=== PATIENT | female | born 1995 | race African-American/Black ===

== ENCOUNTER 2019-04-25 12:48 | Emergency (ER) | payer MEDICAID, OTHER ==
[~2019-04-25] VITALS: Ht 165.1 cm; Wt 91.0 kg
[2019-04-25] MEDS ORDERED: IBUP-516 PO (13:04)
[2019-04-25] MEDS ORDERED: TOPUD PO (13:04)
[2019-04-25 15:16] VITALS: BP 129/79
== END 2019-04-25 18:07 | disposition left against medical advice (07) ==
LOC: ER 12:48
DX: R50.9 Fever, unspecified (principal); R19.7 Diarrhea, unspecified; R11.10 Vomiting, unspecified; R51 Headache; Z53.21 Procedure and treatment not carried out due to patient leaving prior to being seen by health care provider

== ENCOUNTER 2021-09-18 06:40 | Emergency (ER) | payer MEDICAID ==
[~2021-09-18] VITALS: Ht 165.1 cm; Wt 89.0 kg
[~2021-09-18 06:40] MED LIST: IBUP-2778 PO; TOPUD PO
[2021-09-18] MEDS ORDERED: KETOROLAC 30MG/ML VIAL IV STA (07:45)
[2021-09-18] MEDS ORDERED: METHYLPREDNISOLONE SOD SUCC 125 MG/2 ML VIAL IV ONE (07:45)
[2021-09-18] MEDS ORDERED: PIPERACILLIN/TAZ 3.375G PREMIX 50 ML IV ONE (07:45)
[2021-09-18] MEDS ORDERED: SODIUM CHLORIDE 0.9% 1,000 ML IV ONE (07:45)
[2021-09-18] MEDS ORDERED: ACETAMINOPHEN 325MG TABLET PO STA (07:45)
[2021-09-18 08:25] LABS: HEMATOCRIT. 37.4 % (36.0-48.0); HEMOGLOBIN. 12.2 g/dL (12.0-16.0); MEAN CORPUSCULAR HEMOGLOBIN 27.7 pg (28.0-32.0); MEAN CORPUSCULAR VOLUME 84.8 fL (81.0-99.0); MEAN PLATELET VOLUME 8.8 fl (7.4-10.4); PLATELET 257 x1000/uL (130-400); RED BLOOD CELL COUNT 4.41 mill/uL (4.2-5.4); RED CELL DISTRIBUTION WIDTH 14.2 % (11.6-14.6)
[2021-09-18 08:32] LABS: CHLORIDE 106 mEq/L (98-107); HCG SCREEN NEGATIVE
[2021-09-18 08:33] LABS: PROTHROMBIN TIME 10.9 sec (9.6-11.0)
[2021-09-18 08:34] LABS: CLARITY URINE CLEAR (CLEAR); COLOR URINE YELLOW (YELLOW); KETONES URINE TRACE (NEGATIVE); LEUKOCYTE ESTERASE URINE NEGATIVE (NEGATIVE); NITRITE URINE POSITIVE (NEGATIVE); OCCULT BLOOD URINE NEGATIVE (NEGATIVE); PH URINE 6.5 (4.5-8.0); PROTEIN URINE NEGATIVE (NEGATIVE); SPECIFIC GRAVITY URINE 1.022 (1.005-1.030)
[2021-09-18 09:33] LABS: PLATELET ESTIMATE NORMAL
[2021-09-18] MEDS ORDERED: IOHEXOL-300 100 ML BOTTLE ONE (09:33)
[2021-09-18] MEDS ORDERED: IBUP-2028 MT (10:16)
[2021-09-18] MEDS ORDERED: AMOX1TAB16 MT (10:16)
[2021-09-18 10:28] VITALS: BP 122/74
== END 2021-09-18 10:30 | disposition home or self-care (01) ==
LOC: ER 06:40 → ENRESERV 14:26 → CANBEDREQ 21:00
DX: J03.90 Acute tonsillitis, unspecified (principal); J45.909 Unspecified asthma, uncomplicated; F17.210 Nicotine dependence, cigarettes, uncomplicated
CPT/HCPCS: 36415; 70491; 71045; 80053; 81003; 83605; 84145; 84703; 85025; 85610; 87040; 87070; 87086; 87426; 87430; 93005; 96365; 96375; 99285; C9803; J1885; J2543; J2930; J7030; Q9967

== ENCOUNTER 2023-12-07 11:48 | Emergency (ER) | payer MEDICAID, OTHER ==
[~2023-12-07] VITALS: Ht 165.1 cm; Wt 132.0 kg
[~2023-12-07 11:48] MED LIST changes: +AMOX1TAB16 MT; +IBUP-2028 MT
[2023-12-07 11:59] VITALS: O2SAT 100
[2023-12-07] MEDS ORDERED: KETOROLAC 30MG/ML VIAL IM ONE (12:30)
[2023-12-07 12:37] LABS: BASOPHILS % 0.2 % (0.0-2.0); EOSINOPHILS % 0.4 % (0.0-5.0); HEMATOCRIT. 35.4 % (36.0-48.0); HEMOGLOBIN. 11.8 g/dL (12.0-16.0); LYMPHOCYTES % 12.4 % (20.0-50.0); MEAN CORPUSCULAR HEMOGLOBIN 28.7 pg (28.0-32.0); MEAN CORPUSCULAR HGB CONC 33.3 g/dL (31.0-37.0); MEAN CORPUSCULAR VOLUME 86.2 fL (81.0-99.0); MEAN PLATELET VOLUME 8.2 fl (7.4-10.4); MONOCYTES % 5.4 % (2.0-8.0); NEUTROPHILS % 81.6 % (40.0-76.0); PLATELET 279 x1000/uL (130-400); RED BLOOD CELL COUNT 4.11 mill/uL (4.2-5.4); RED CELL DISTRIBUTION WIDTH 14.1 % (11.6-14.6); WHITE BLOOD COUNT 9.3 x1000/uL (4.5-11.0)
[2023-12-07 12:43] LABS: CHLORIDE 106 mEq/L (98-107); POTASSIUM 3.5 mEq/L (3.5-5.1); SODIUM 138 mEq/L (136-145)
[2023-12-07 12:44] LABS: CARBON DIOXIDE 26 mEq/L (21-32)
[2023-12-07 12:49] LABS: CREATININE 0.8 mg/dL (0.6-1.0); GLUCOSE 102 mg/dL (70-105); UREA NITROGEN BLOOD 5 mg/dL (9-23)
[2023-12-07 12:51] LABS: ALANINE AMINOTRANSFERASE < 7 IU/L (10-49); ALBUMIN 4.5 g/dL (3.2-4.8); ASPARTATE AMINOTRANSFERASE 10 IU/L (<34); BILIRUBIN DIRECT 0.1 mg/dL (<=3.0); BILIRUBIN TOTAL 0.4 mg/dL (0.1-1.0); PROTEIN TOTAL 7.5 g/dL (6.0-8.3)
[2023-12-07 13:00] LABS: ETHANOL BLOOD < 10 mg/dL (<10)
[2023-12-07] MEDS: KETOROLAC 30MG/ML VIAL IM NR (14:39)
[2023-12-07] MEDS ORDERED: DICY20TA2 MT (15:29)
[2023-12-07 15:39] LABS: HCG SCREEN NEGATIVE
[2023-12-07] MEDS: HYDROCODONE/ACETAMINOPHEN 5/325MG TABLET PO ONE (17:01)
[2023-12-07 17:02] VITALS: BP 138/81; PULSE 90; RESP 16; TEMP 36.83628; O2SAT 100
== END 2023-12-07 17:06 | disposition home or self-care (01) ==
LOC: ER 11:48
DX: A08.39 Other viral enteritis (principal); J45.909 Unspecified asthma, uncomplicated; Z79.899 Other long term (current) drug therapy
CPT/HCPCS: 80076; 80048; 80320; 84703; 83690; 85025; 36415; 96372; 99284; J1885; G0480